=== PATIENT | female | born 1970 | race Caucasian/White ===

== ENCOUNTER 2020-06-29 00:08 | Observation (INO) | payer BC, SELFPAY ==
[2020-06-29] MEDS ORDERED: diphenhydrAMINE 25 MG CAP PO PRN (04:16)
[2020-06-29] MEDS ORDERED: diphenhydrAMINE 50 MG/ML VIAL IVP PRN (04:21)
--- NOTE | 2020-06-29 04:32 | PDOC.HHP ---
Hospitalist HPI - History of Present Illness Tongue swelling History of Present Illness: This is a 49-year-old female patient with a history of rheumatoid arthritis on hydroxychloroquine, hypothyroidism and hypertension who presents complaining of swelling of her tongue and face and generalized itching of her body after she took some herbal preparation called turmeric. This is a [id number] experience such an event. About 30 minutes after taking the tea, she noticed her tongue was swollen and she could not talk she was able to ask her to call email before his speech ceased. On route, EMS gave her 125 mg Solu-Medrol, Benadryl and DuoNeb as well as epinephrine. Patient notes that she also took 1 dose of EpiPen when the symptoms started prior to activating EMS. At presentation her blood pressure was 128/80, pulse 101, respiratory rate 20, saturation 94% on room air. Temperature was 99.1. Labs showed a leukocytosis of 17.6, no bands hemoglobin 14.3 platelets 333. Chemistry showed mild hyponatremia of 134, bicarb 20 glucose 165. While being observed in the ED symptoms gradually improved and started to talk. By the time I went in to see her she was talking although not clearly in her skin itching and lesions had resolved. She still had swelling of the tongue and drooling saliva however. Plan is to admit her and observe her in ICU through the night. Patient notes that she has ever had an allergic reaction to bananas in the past. She however is not taking any JOVANNI inhibitors. Her only medications her hydroxychloroquine and carvedilol for blood pressure. Hospitalist ROS - Review of Systems Constitutional: denies: fever, chills, sweats, weakness Respiratory: reports: shortness of breath, SOB with excertion. denies: cough, hemoptysis Cardiovascular: denies: chest pain, palpitations, orthopnea Gastrointestinal: denies: nausea, vomiting, abdominal pain, diarrhea Musculoskeletal: denies: neck pain, shoulder pain, arm pain Neurological: denies: weakness, numbness, incoordination, change in speech All other systems reviewed; all pertinent +/- noted in HPI/Subj Hospitalist History - Past Medical History Other Medical History: Rheumatoid arthritis, hypothyroidism. - Past Surgical History Past Surgical History: reports: no pertinent history - Family History Other Family History: Hypothyroidism - Social History Smoking Status: Never smoker Alcohol: reports: None Drugs: reports: none Living Situation: With Family - Exam General Appearance: awake alert General - other findings: Severely obese, swollen tongue and drooling Eye: PERRL, anicteric sclera ENT: normocephalic atraumatic Heart: RRR, no murmur, no gallops, no rubs Respiratory: CTAB, no wheezes, no rales, no ronchi Gastrointestinal: soft, non-tender, non-distended, normal bowel sounds Extremities: no cyanosis, no clubbing, no edema Neurological: cranial nerve grossly intact, normal sensation to touch, no weakness Psychiatric: normal affect, normal behavior, A&O x 3 Hospitalist Results - Labs Result Diagrams: 06/29/20 05:27 06/29/20 05:27 Hospitalist H&P A/P - Plan Plan: This is a 49-year-old female patient with a history of moderate arthritis and hypertension presenting with swelling of the tongue and generalized body rash and itching consistent with histaminergic angioedema. Angioedema Secondary to reaction to drug Currently resolving We will admit and monitor. Received Solu-Medrol and Benadryl in route Patient would have to avoid turmeric No need for intubation at the moment. Hypertension Resume home blood pressure medications. Rheumatoid arthritis Resume hydroxychloroquine VT prophylaxisLovenox Codefull code
[2020-06-29 05:35] LABS: #Lymphocytes 1.5 thou/uL (1.20-3.40); #Monocytes 0.6 thou/uL (0.11-0.59); #Neutrophils 15.4 thou/uL (1.40-6.50); %Basophils 0.1 % (0.0-1.0); %Eosinophils 0.1 % (0.0-10.0); %Lymphocytes 8.7 % (21.0-51.0); %Monocytes 3.6 % (0.0-10.0); %Neutrophils 87.5 % (42.0-75.0); Hemoglobin 14.3 g/dL (12.0-16.0); Mean Corpuscular HGB CONC 33.2 g/dL (32.0-36.0); Mean Corpuscular Hemoglobin 30.9 pg (27.0-31.0); Mean Corpuscular Volume 92.9 fL (78.0-98.0); Mean Platelet Volume 7.8 fL (7.4-10.4); Platelet Count 333 thou/uL (130-400); RBC Distribution Width 11.4 % (11.5-14.5); Red Blood Cell (RBC) Count 4.63 mill/uL (4.20-5.40); White Blood Cell (WBC) Count 17.6 thou/uL (4.8-10.8)
[2020-06-29 05:56] LABS: ALT (SGPT) 22 U/L (8-55); AST (SGOT) 24 U/L (5-34); Alkaline Phosphatase 68 U/L (40-110); Anion Gap 16 mmol/L (10-20); BUN (Urea Nitrogen) 15 mg/dL (9.8-20.1); Bilirubin, Total 0.6 mg/dL (0.2-1.2); Calc. Creatinine Clearance 0 mL/min (70-130); Calcium 8.8 mg/dL (7.8-10.44); Carbon Dioxide 20 mmol/L (22-29); Globulin 3.2 g/dL (2.4-3.5); Glucose 165 mg/dL (70-105); Potassium 4.3 mmol/L (3.5-5.1); Protein, Total 7.2 g/dL (6.0-8.3)
[2020-06-29 06:03] LABS: Chloride 102 mmol/L (98-107); Sodium 134 mmol/L (136-145)
[2020-06-29 09:16] LABS: Bacteria/HPF 3+ HPF (None Seen); Bilirubin Negative (Negative); Blood, Urine Trace (Negative); Clarity Clear (Clear); Glucose, Urine (Dipstick) Normal (Negative); Ketone, Urine Negative (Negative); Leukocyte Negative Leu/uL (Negative); Nitrite Negative (Negative); Protein, Urine (Dipstick) Negative (Neg-Trace); Urobilinogen Normal mg/dL (Less than 2); WBC/HPF 0-3 HPF (0-3); pH, Urine 6.5 (5.0-9.0)
[2020-06-29] MEDS ORDERED: Enoxaparin Sodium 40 MG/0.4 ML SYRINGE ONE (09:27)
[2020-06-29] MEDS ORDERED: methylPREDNISolone Sod Succ 40 MG VIAL ONE (09:27)
[2020-06-29] MEDS: methylPREDNISolone Sod Succ/PF 125 MG/2 ML VIAL IVP SCH ×2 (09:42→19:37)
[2020-06-29] MEDS: Enoxaparin Sodium 40 MG/0.4 ML SYRINGE SC SCH (09:42)
[2020-06-29] MEDS ORDERED: GUAIFENESIN SF SOLN 200 MG/10 ML UDCUP PO PRN (11:12)
[2020-06-29] MEDS ORDERED: Ondansetron PF 4 MG/2 ML Vial IVP PRN (11:12)
[2020-06-29] MEDS ORDERED: hydrALAZINE 20 MG/ML VIAL SLOW IVP PRN (11:12)
[2020-06-29] MEDS ORDERED: Calcium Carbonate 500 MG ChewTAB PO PRN (11:12)
[2020-06-29] MEDS ORDERED: HYDROcodone/Acetaminophen 5/325 mg Tablet PO PRN (11:12)
[2020-06-29] MEDS ORDERED: Senokot S 8.6-50 MG TAB PO PRN (11:12)
[2020-06-29] MEDS ORDERED: Ondansetron ODT 4 MG TAB PO PRN (11:12)
[2020-06-29] MEDS ORDERED: Loperamide HCl 2 MG CAP PO PRN (11:12)
[2020-06-29] MEDS ORDERED: Zolpidem Tartrate 5 MG TAB PO PRN (11:12)
[2020-06-29] MEDS ORDERED: Cepastat Lozenges 1 LOZ PO PRN (11:12)
[2020-06-29] MEDS ORDERED: Benzonatate 100 MG CAP PO PRN (11:12)
--- NOTE | 2020-06-29 14:17 | PDOC.HOSPP ---
- Subjective Encounter Date: 06/29/20 Encounter Time: 11:30 Subjective: Patient has improvement in her angioedema, no shortness of breath, less swelling of lip - Objective Result Diagrams: 06/29/20 05:27 06/29/20 05:27 EKG Reviewed by me: Yes (Normal sinus rhythm) Hospitalist ROS - Review of Systems ENT: denies: ear pain, ear discharge, nose pain, nose discharge, nose congestion, mouth pain, mouth swelling, throat pain, throat swelling, other Respiratory: denies: cough, dry, shortness of breath, hemoptysis, SOB with excertion, pleuritic pain, sputum, wheezing, other Cardiovascular: denies: chest pain, palpitations, orthopnea, paroxysmal noc. dyspnea, edema, light headedness, other Gastrointestinal: denies: nausea, vomiting, abdominal pain, diarrhea, constipation, melena, hematochezia, other Genitourinary: denies: dysuria, frequency, incontinence, hematuria, retention, other Musculoskeletal: denies: neck pain, shoulder pain, arm pain, back pain, hand pain, leg pain, foot pain, other Skin: denies: rash, lesions, coty, bruising, other - Medication Medications: Active Medications Generic Name Dose Route Start Last Admin Trade Name Freq PRN Reason Stop Dose Admin Enoxaparin Sodium 40 mg 06/29/20 09:00 06/29/20 09:42 Enoxaparin Sodium 40 Mg/0.4 Ml Syringe SC 40 mg 0900 WILLIAM Administration Methylprednisolone Sodium Succinate 80 mg 06/29/20 04:27 06/29/20 09:42 Methylprednisolone Sod Succ/Pf 125 Mg/2 Ml Vial IVP 80 mg DAILY WILLIAM Administration - Exam General Appearance: NAD, awake alert Eye: PERRL, anicteric sclera ENT: normocephalic atraumatic, no oropharyngeal lesions Neck: supple, symmetric, no JVD, no thyromegaly Heart: RRR, no murmur, no gallops, no rubs Respiratory: no wheezes, no rales, no ronchi Gastrointestinal: soft, non-tender, non-distended, normal bowel sounds Extremities: no cyanosis, no clubbing, no edema Skin: normal turgor, no lesions Neurological: no focal deficits Musculoskeletal: normal tone, normal strength Psychiatric: normal affect, normal behavior, A&O x 3 Hosp A/P (1) Angioedema Code(s): T78.3XXA - ANGIONEUROTIC EDEMA, INITIAL ENCOUNTER Status: Acute (2) Hypertension Code(s): I10 - ESSENTIAL (PRIMARY) HYPERTENSION Status: Chronic Qualifiers: Hypertension type: essential hypertension Qualified Code(s): I10 - Essential (primary) hypertension (3) Rheumatoid arthritis Code(s): M06.9 - RHEUMATOID ARTHRITIS, UNSPECIFIED Status: Chronic - Plan old records reviewed/req Patient has clinical improvement, continue Solu-Medrol, add Pepcid 20 mg IV twice daily, continue Benadryl as needed, Monitor for 24 hours, We will downgrade her to medical floor for observation, Expecting her discharge tomorrow
[2020-06-29 18:12] VITALS: BMI 42.0
[2020-06-29] MEDS ORDERED: Propranolol HCl LA 80 MG CAP PO SCH (21:00)
[2020-06-29] MEDS ORDERED: Hydroxychloroquine Sulfate 200 MG TAB PO SCH (21:00)
[2020-06-29] MEDS ORDERED: FLU VACC QS2020-21(6MOS UP)/PF 60 MCG/0.5 ML SYRINGE IM ONE (21:00)
[2020-06-29] MEDS: Famotidine/PF 20 mg/2ml Vial SLOW IVP SCH (21:04)
[2020-06-30 05:44] LABS: #Eosinphils 0.1 thou/uL (0.0-0.7); #Lymphocytes 2.8 thou/uL (1.20-3.40); #Neutrophils 11.4 thou/uL (1.40-6.50); %Basophils 0.3 % (0.0-1.0); %Eosinophils 0.4 % (0.0-10.0); %Lymphocytes 18.5 % (21.0-51.0); %Monocytes 6.6 % (0.0-10.0); %Neutrophils 74.3 % (42.0-75.0); Hemoglobin 12.8 g/dL (12.0-16.0); Mean Corpuscular HGB CONC 33.6 g/dL (32.0-36.0); Mean Corpuscular Hemoglobin 31.9 pg (27.0-31.0); Mean Corpuscular Volume 94.8 fL (78.0-98.0); Mean Platelet Volume 7.5 fL (7.4-10.4); Platelet Count 310 thou/uL (130-400); RBC Distribution Width 11.7 % (11.5-14.5); Red Blood Cell (RBC) Count 4.03 mill/uL (4.20-5.40); White Blood Cell (WBC) Count 15.3 thou/uL (4.8-10.8)
[2020-06-30 06:05] LABS: Anion Gap 12 mmol/L (10-20); BUN (Urea Nitrogen) 9 mg/dL (9.8-20.1); Calc. Creatinine Clearance 168 mL/min (70-130); Carbon Dioxide 24 mmol/L (22-29); Chloride 106 mmol/L (98-107); Glucose 119 mg/dL (70-105); Potassium 3.9 mmol/L (3.5-5.1); Sodium 138 mmol/L (136-145)
[2020-06-30] MEDS: Enoxaparin Sodium 40 MG/0.4 ML SYRINGE SC SCH (09:43)
[2020-06-30] MEDS: Famotidine/PF 20 mg/2ml Vial SLOW IVP SCH (09:43)
[2020-06-30] MEDS: methylPREDNISolone Sod Succ/PF 125 MG/2 ML VIAL IVP SCH (09:43)
[2020-06-30 11:34] VITALS: BP 145/90; TEMP 98.2
--- NOTE | 2020-06-30 11:38 | PDOC.DS.DS ---
Provider - Provider Date of Admission: 06/29/20 03:10 Date of Discharge: 06/30/20 Admitting Provider: Master Ozuna MD Primary Care Physician: NO PCP PROVIDER Course - Hospital Course Hospital Course: Discharge diagnosis: 1. Angioedema 2. Hyponatremia 3. Metabolic acidosis Hospital course: Patient is a pleasant 49-year-old lady who was admitted to the hospital on June 29, 2020 for angioedema after eating banana and drinking some turmeric tea. Patient injected herself with EpiPen prior to presentation and improved. She received antihistamines and steroids in the hospital and showed significant clinical improvement. She is being discharged home in a stable condition. She is advised to follow-up with primary care provider and seek referral to an marine steward. Many thanks for allowing me to participate in your patient's care. Please feel free to contact me with any questions or concerns. Discharge destination: Home Resuscitation Status: 06/29/20 04:13 Resuscitation Status Routine Resuscitation Status: FULL: Full Resuscitation - Labs Lab Results: 06/30/20 05:25 06/30/20 05:25 Abnormal Lab Results - Last 48 hrs 06/29/20 05:27: Sodium 134 L, Carbon Dioxide 20 L 06/29/20 05:27: WBC 17.6 H, RDW 11.4 L, Neutrophils % 87.5 H, Lymphocytes % 8.7 L, Neutrophils # 15.4 H, Monocytes # 0.6 H 06/29/20 08:30: Urine Blood Trace A, Urine RBC 4-6 A, Ur Squamous Epith Cells 4- 6 A, Urine Bacteria 3+ A 06/30/20 05:25: BUN 9 L 06/30/20 05:25: WBC 15.3 H, RBC 4.03 L, MCH 31.9 H, Lymphocytes % 18.5 L, Neutrophils # 11.4 H, Monocytes # 1.0 H - Physical Exam Vitals: Vital Signs (12 hours) Temp Pulse Resp BP Pulse Ox 06/30/20 10:47 98.2 F 91 18 145/90 H 96 06/30/20 07:45 98 F 82 18 133/79 97 06/30/20 04:00 97.9 F 93 18 115/77 97 06/30/20 00:05 97.7 F 101 H 16 127/77 95 Weight Weight 215 lb Physical Exam: The patient was seen and examined on the day of discharge. Patient denies chest pain or shortness of breath. Vital signs are stable. S1 and S2 are heard. Lungs are clear to auscultation bilaterally. Plan - Discharge Medications Prescriptions: EPINEPHrine [EpiPen 2-Dutch] 0.3 mg IM ONE PRN #1 pen PRN Reason: angioedema Famotidine [Pepcid] 20 mg PO BID #14 tab predniSONE 10 mg PO BID-WM #10 tab Home Medications: Medication Instructions Recorded Confirmed Type Hydroxychloroquine Sulfate 200 mg PO QPM 06/29/20 06/29/20 History Propranolol HCl [Propranolol HCl 1 tab PO QPM 06/29/20 06/29/20 History ER] EPINEPHrine [EpiPen 2-Dutch] 0.3 mg IM ONE PRN #1 pen 06/30/20 Rx Famotidine [Pepcid] 20 mg PO BID #14 tab 06/30/20 Rx predniSONE 10 mg PO BID-WM #10 tab 06/30/20 Rx Allergies: amoxicillin Allergy (Verified 06/29/20 18:08) banana Allergy (Verified 06/29/20 18:08) clarithromycin [From Biaxin] Allergy (Verified 06/29/20 18:08) morphine Allergy (Verified 06/29/20 18:08) turmeric Allergy (Verified 06/29/20 18:08) - Discharge Instructions Discharge Instructions:: Do not eat bananas or drink turmeric tea. - Follow up Plan Referrals: PROVIDER,NO PCP [Primary Care Provider] - 3 Days Disposition: HOME Quality - Care Measures CORE MEASURES:: N/A
[2020-06-30 17:14] LABS: SARS-CoV-2 PCR by NAA Not Detected (NotDetected)
== END 2020-06-30 13:16 | disposition home or self-care (01) ==
LOC: ERS 00:08 → EDBD 00:08 → INTOOBSV 03:10 → ERHOLD 03:10 → SJJU 16:26
PROVIDERS: ADMIT Student in an Organized Health Care Education/Training Program; ATTEND Internal Medicine
DX: T78.1XXA Other adverse food reactions, not elsewhere classified, initial encounter (principal); T78.3XXA Angioneurotic edema, initial encounter; E87.1 Hypo-osmolality and hyponatremia; E87.2 Acidosis; I10 Essential (primary) hypertension; M06.9 Rheumatoid arthritis, unspecified; E03.9 Hypothyroidism, unspecified; Z79.899 Other long term (current) drug therapy; Z88.0 Allergy status to penicillin; Z88.1 Allergy status to other antibiotic agents; Z88.5 Allergy status to narcotic agent; Z91.018 Allergy to other foods; Z20.822 Contact with and (suspected) exposure to COVID-19
CPT/HCPCS: 36415; 80048; 80053; 81001; 85025; 87635; 94760; 96372; 96374; 96375; 96376; G0378; J1650; J2920; J2930; S0028; U0003; U0005

== ENCOUNTER 2020-08-19 20:40 | Emergency (ER) | payer BC ==
[2020-08-19 21:33] LABS: #Basophils 0.1 thou/uL (0.0-0.2); #Eosinphils 0.2 thou/uL (0.0-0.7); #Lymphocytes 3.2 thou/uL (1.20-3.40); #Monocytes 0.8 thou/uL (0.11-0.59); #Neutrophils 3.6 thou/uL (1.40-6.50); %Basophils 0.9 % (0.0-1.0); %Eosinophils 2.5 % (0.0-10.0); %Lymphocytes 41.2 % (21.0-51.0); %Monocytes 9.8 % (0.0-10.0); %Neutrophils 45.6 % (42.0-75.0); Hemoglobin 13.8 g/dL (12.0-16.0); Mean Corpuscular HGB CONC 34.1 g/dL (32.0-36.0); Mean Corpuscular Hemoglobin 32.3 pg (27.0-31.0); Mean Corpuscular Volume 94.6 fL (78.0-98.0); Mean Platelet Volume 7.7 fL (7.4-10.4); Platelet Count 262 thou/uL (130-400); RBC Distribution Width 11.6 % (11.5-14.5); Red Blood Cell (RBC) Count 4.28 mill/uL (4.20-5.40); White Blood Cell (WBC) Count 7.9 thou/uL (4.8-10.8)
[2020-08-19 21:56] LABS: ALT (SGPT) 15 U/L (8-55); AST (SGOT) 15 U/L (5-34); Albumin 4.1 g/dL (3.5-5.0); Alkaline Phosphatase 83 U/L (40-110); Anion Gap 16 mmol/L (10-20); BUN (Urea Nitrogen) 12 mg/dL (9.8-20.1); Bilirubin, Total 0.5 mg/dL (0.2-1.2); Calc. Creatinine Clearance 0 mL/min (70-130); Calcium 9.2 mg/dL (7.8-10.44); Carbon Dioxide 21 mmol/L (22-29); Chloride 106 mmol/L (98-107); Globulin 2.8 g/dL (2.4-3.5); Glucose 150 mg/dL (70-105); Lipase 29 U/L (8-78); Potassium 3.9 mmol/L (3.5-5.1); Protein, Total 6.9 g/dL (6.0-8.3); Sodium 139 mmol/L (136-145)
[2020-08-19] MEDS ORDERED: predniSONE 20 MG TAB ONE (23:41)
[2020-08-19] MEDS ORDERED: Ketorolac Tromethamine 30 MG/ML VIAL ONE (23:42)
== END 2020-08-20 00:01 | disposition home or self-care (01) ==
LOC: ERS 20:40
DX: M32.9 Systemic lupus erythematosus, unspecified (principal); R07.89 Other chest pain; I10 Essential (primary) hypertension; Z79.899 Other long term (current) drug therapy
CPT/HCPCS: 36415; 71045; 80053; 83690; 84484; 85025; 93005; 96372; J1885; J7512